=== PATIENT | female | born 1980 | race Caucasian/White ===

== ENCOUNTER 2016-08-15 20:51 | Emergency (ER) | payer OTHER ==
[2016-08-15 20:59] VITALS: BP 135/87
== END 2016-08-15 22:15 | disposition home or self-care (01) ==
LOC: ED 20:51
DX: H57.8 Other specified disorders of eye and adnexa (principal); Z91.013 Allergy to seafood; Z88.8 Allergy status to other drugs, medicaments and biological substances; M06.9 Rheumatoid arthritis, unspecified
CPT/HCPCS: J3490; V2632